=== PATIENT | female | born 1945 | race African-American/Black ===

== ENCOUNTER 2017-02-27 15:45 | Emergency (ER) | payer OTHER, MEDICARE ==
--- NOTE | 2017-02-27 15:55 | DR.AMS ---
HPI - Time Seen Time seen: 15:34 - HPI Comment HPI Comment: Patient referred for evaluation of fever s/p temperature of 101 by home health nurse. - Complaint Cheif Complaint Doctors Comments: Daughter reports that she was at [facility] receiving antibiotics for a shoulder abscess for ten days. She was discharge home s/p rehab with instructions for home health nurse follow up. Today when the nurse took her vital signs her temp for 101 and she was advised to come to the hospital. PMH - PMH Past Medical History: COPD, Diabetes, Hypertension Past Surgical History: Yes Surgical History: Angioplasty/Stents, Ortho Surgery - Social History Do you use any recreational Drugs:: No PE - Vitals Vital Signs: Temp Pulse Pulse Resp BP BP BP 02/27/17 17:24 102.4 F H 91 H 16 02/27/17 15:53 102.7 F H 103 H 18 111/57 01/07/16 12:00 117/50 117/50 01/06/16 16:00 101/75 Pulse Ox 02/27/17 17:24 100 02/27/17 15:53 98 01/07/16 12:00 01/06/16 16:00 Course - Consultation Called: 17:35 (Dr Olivo stated that since we have around the clock nursing care he states that he can be called if any problems arise.) ROR - Labs Reviewed Result Diagrams: 02/27/17 16:30 02/27/17 16:30 Laboratory: WBC 9.1 X10^3/uL (3.6-10.0) 02/27/17 16:30 RBC 3.33 X10^6/uL (3.5-5.4) L 02/27/17 16:30 Hgb 8.8 g/dL (12.0-16.0) L 02/27/17 16:30 Hct 27.0 % (36.0-47.0) L 02/27/17 16:30 MCV 81.1 fL (80.0-100.0) 02/27/17 16:30 MCH 26.3 pg (27.0-34.0) L 02/27/17 16:30 MCHC 32.4 g/dL (33.0-35.0) L 02/27/17 16:30 RDW 18.2 % (11.6-16.5) H 02/27/17 16:30 Plt Count 301 X10^3/uL (150.0-450.0) 02/27/17 16:30 MPV 8.8 fL (7.4-11.0) 02/27/17 16:30 Neut % 69.6 % (42.0-75.0) 02/27/17 16:30 Lymph % 15.4 % (21.0-51.0) L 02/27/17 16:30 [place] % 13.2 % (0.0-13.0) H 02/27/17 16:30 Eos % 1.4 % (0.9-2.9) 02/27/17 16:30 Baso % 0.4 % (0.2-1.0) 02/27/17 16:30 Neut # 6.3 x10^3/uL (2.2-4.8) H 02/27/17 16:30 Lymph # 1.4 X10^3/uL (1.3-2.9) 02/27/17 16:30 [place] # 1.2 x10^3/uL (0.3-0.8) H 02/27/17 16:30 Eos # 0.1 x10^3/uL (0.0-0.2) 02/27/17 16:30 Baso # 0.0 X10^3/uL (0.0-0.1) 02/27/17 16:30 Absolute Nucleated RBC 0.0 /100WBC 02/27/17 16:30 Sodium 135 mmol/L (136-145) L 02/27/17 16:30 Corrected Sodium 136 mmol/L (136-145) 02/27/17 16:30 Potassium 4.6 mmol/L (3.5-5.1) 02/27/17 16:30 Chloride 103 mmol/L (98-107) 02/27/17 16:30 Carbon Dioxide 24.5 mmol/L (21-32) 02/27/17 16:30 BUN 27 mg/dL (7-18) H 02/27/17 16:30 Creatinine 3.25 mg/dL (0.55-1.02) H 02/27/17 16:30 Est GFR (MDRD) Af Amer 18 (>60) L 02/27/17 16:30 Est GFR (MDRD) Non-Af 15 (>60) L 02/27/17 16:30 Glucose 126 mg/dL (65-99) H 02/27/17 16:30 Calcium 8.8 mg/dL (8.5-10.1) 02/27/17 16:30 C-Reactive Protein 206.60 mg/L (0-3.0) H 02/27/17 16:30 Specimen Type Catherized urine 02/27/17 16:44 Urine Color Yellow (YELLOW) 02/27/17 16:44 Urine Appearance Clear (CLEAR) 02/27/17 16:44 Urine pH 6.0 (5.0 - 8.0) 02/27/17 16:44 Ur Specific [place] 1.015 (1.000-1.030) 02/27/17 16:44 Urine Protein 1+ (NEGATIVE) 02/27/17 16:44 Urine Glucose (UA) Negative (NEGATIVE) 02/27/17 16:44 Urine Ketones Negative (NEGATIVE) 02/27/17 16:44 Urine Occult Blood Negative (NEGATIVE) 02/27/17 16:44 Urine Nitrite Negative (NEGATIVE) 02/27/17 16:44 Urine Bilirubin Negative (NEGATIVE) 02/27/17 16:44 Urine Urobilinogen Normal (NORMAL) 02/27/17 16:44 Ur Leukocyte Esterase Negative (NEGATIVE) 02/27/17 16:44 Urine RBC Rare /HPF (NEGATIVE) 02/27/17 16:44 Urine WBC Rare /HPF (NEGATIVE) 02/27/17 16:44 Ur Squamous Epith Cells Few /HPF (NEGATIVE) 02/27/17 16:44 Urine Bacteria Negative /HPF (NEGATIVE) 02/27/17 16:44 Ur Culture Indicated? No/not indicated 02/27/17 16:44 Streptococcus Screen Negative (NEGATIVE) 02/27/17 16:35 - Diagnosis Discharge Problem: Hematoma and contusion Forehead laceration Qualifiers: Encounter type: initial encounter Qualified Code(s): S01.81XA - Laceration without foreign body of other part of head, initial encounter - Discharge Plan Condition: Stable - Follow ups/Referrals Follow ups/Referrals: NFD,None [Primary Care Provider] - 3 days - Instructions
[2017-02-27 16:11] VITALS: BMI 45.1
[2017-02-27] MEDS ORDERED: TYLENOL 500 MG TAB EXTRA STRENGTH PO ONE (16:32)
[2017-02-27 16:41] LABS: BASOPHILS % (AUTO) 0.4 % (0.2-1.0); EOSINOPHILS # (AUTO) 0.1 x10^3/uL (0.0-0.2); EOSINOPHILS % (AUTO) 1.4 % (0.9-2.9); HEMOGLOBIN 8.8 g/dL (12.0-16.0); LYMPHOCYTES # (AUTO) 1.4 X10^3/uL (1.3-2.9); LYMPHOCYTES % (AUTO) 15.4 % (21.0-51.0); MEAN CORPUSCULAR HEMOGLOBIN 26.3 pg (27.0-34.0); MEAN CORPUSCULAR HGB CONC 32.4 g/dL (33.0-35.0); MEAN CORPUSCULAR VOLUME 81.1 fL (80.0-100.0); MEAN PLATELET VOLUME 8.8 fL (7.4-11.0); MONOCYTES # (AUTO) 1.2 x10^3/uL (0.3-0.8); MONOCYTES % (AUTO) 13.2 % (0.0-13.0); NEUTROPHILS # (AUTO) 6.3 x10^3/uL (2.2-4.8); NEUTROPHILS % (AUTO) 69.6 % (42.0-75.0); PLATELET COUNT 301 X10^3/uL (150.0-450.0); RED BLOOD COUNT 3.33 X10^6/uL (3.5-5.4); RED CELL DISTRIBUTION WIDTH 18.2 % (11.6-16.5); WHITE BLOOD COUNT 9.1 X10^3/uL (3.6-10.0)
[2017-02-27 16:50] LABS: CALCIUM 8.8 mg/dL (8.5-10.1); CARBON DIOXIDE 24.5 mmol/L (21-32); CREATININE 3.25 mg/dL (0.55-1.02)
[2017-02-27 16:57] LABS: BILIRUBIN,URINE NEGATIVE (NEGATIVE); BLOOD/HEMOGLOBIN,URINE NEGATIVE (NEGATIVE); GLUCOSE, URINE NEGATIVE (NEGATIVE); KETONES,URINE NEGATIVE (NEGATIVE); LEUKOCYTE ESTERASE ,URINE NEGATIVE (NEGATIVE); NITRITES,URINE NEGATIVE (NEGATIVE); PROTEIN,URINE 1+ (NEGATIVE); UROBILINOGEN,URINE NORMAL (NORMAL)
[2017-02-27 17:05] LABS: APPEARANCE,URINE CLEAR (CLEAR); BACTERIA,URINE NEGATIVE /HPF (NEGATIVE); COLOR,URINE YELLOW (YELLOW); RBC,URINE RARE /HPF (NEGATIVE); SQUAMOUS EPITHELIAL CELL,UR FEW /HPF (NEGATIVE)
[2017-02-27] MEDS ORDERED: NS 1000 ML 1,000 ML IV ONE (17:06)
[2017-02-27] MEDS ORDERED: NS 1000 ML 1,000 ML ONE (17:06)
[2017-02-27 18:15] VITALS: BP 161/69
--- NOTE | 2017-02-27 18:38 | RAD ---
HISTORY: 71-year-old female with fever and altered mental status. Study: Frontal view of the chest. Comparison: Chest radiograph January 04, 2016 Findings: Interval removal of right IJ approach central venous catheter. The trachea is midline. The cardiac silhouette is stably enlarged. The lungs are clear without foca l consolidation, effusion or pneumothorax. Soft tissues are unremarkable. Osseous structures are unr emarkable. IMPRESSION: 1. No acute cardiopulmonary disease. Reported By:
== END 2017-02-27 18:50 | disposition home or self-care (01) ==
LOC: ER 15:58
DX: S00.93XA Contusion of unspecified part of head, initial encounter (principal); S01.81XA Laceration without foreign body of other part of head, initial encounter; Y33.XXXA Other specified events, undetermined intent, initial encounter; Y92.9 Unspecified place or not applicable
CPT/HCPCS: 36415; 71010; 80048; 81001; 85025; 86140; 87040; 87070; 87880; 96365; 96367; 99282; 99283

== ENCOUNTER 2017-03-31 14:59 | Emergency (ER) | payer OTHER, MEDICARE ==
[2017-03-31 15:34] VITALS: BP 147/70; BMI 47.2
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
--- NOTE | 2017-03-31 16:40 | RAD ---
HISTORY: Ankle pain after falling off stretcher Study: Three views left ankle Comparison: None Findings: Normal alignment. No acute fracture or dislocation. The soft tissues are unremarkable. There are deg enerative changes at the ankle joint. There is prominent calcaneal enthesopathy. Vascular calcificati ons are seen. IMPRESSION: 1. No acute osseous abnormality. Reported By:
--- NOTE | 2017-03-31 16:41 | RAD ---
Left shoulder, three views Indication: Fall off stretcher, currently with no complaints of shoulder pain Comparison: None Findings: Evaluation is severely limited due to technique. No definite fracture or malalignment is id entified. Degenerative changes of the AC and glenohumeral joint are noted. There is also suspected na rrowing of the acromiohumeral interval, suggestive for rotator cuff insufficiency. There is no gross soft tissue injury. Impression: Severely limited exam without definite acute osseous abnormality. If there is high clinical concern f or fracture, repeat shoulder radiograph is recommended. Reported By:
== END 2017-03-31 17:18 | disposition home or self-care (01) ==
LOC: ER 15:13
DX: S90.02XA Contusion of left ankle, initial encounter (principal); T81.89XA Other complications of procedures, not elsewhere classified, initial encounter
CPT/HCPCS: 73030; 73610; 99282; 99283

== ENCOUNTER 2017-10-23 04:04 | Emergency (ER) | payer OTHER, MEDICARE ==
[2017-10-23] MEDS ORDERED: NITROSTAT SL PRN (04:15)
[2017-10-23] MEDS ORDERED: PLAVIX PO ONE (04:15)
[2017-10-23 04:18] VITALS: BMI 42.0
[2017-10-23] MEDS ORDERED: ASPIRIN EC 81 MG PO ONE (04:22)
--- NOTE | 2017-10-23 04:22 | DR.GENAD ---
HPI - HPI Comment HPI Comment: Chest pain onset at hs on 10/21/17. It recurred again last night. She describes this as a felling of being gassy. There was no dyspmea, nausea or palpitations. She had no diaphoresis. Before the EMS unit departed her house, she had rated the intensity of the chest pain as as 10 but at the time she's being seen here it is now a 0. She is chest pain free now. - Nurses notes reviewed Nurses Notes Review: Yes - Source History Provided: Patient PMH - PMH Past Medical History: COPD, Diabetes, Hypertension Past Surgical History: Yes Surgical History: Angioplasty/Stents, Ortho Surgery - Social History Do you use any recreational Drugs:: No ROS - Review of Systems Constitutional: No Symptoms Reported Eyes: No Symptoms Reported ENTM: No Symptoms Reported Respiratoy: No Symptoms Reported Cardiovascular: Chest Pain Gastrointestinal/Abdominal: No Symptoms Reported Genitourinary: No Symptoms Reported Neurological: No Symptoms Reported Musculoskeletal: No Symptoms Reported Integumentary: No Symptoms Reported Hematologic/Lymphatic: No Symptoms Reported Endocrine: No Symptoms Reported Psychiatric: No Symptoms Reported All Other Systems: Reviewed and Negative PE - Vital Signs Vitals: Pulse Rate 103 Respiratory Rate 18 Blood Pressure [Left Arm] 117/50 Blood Pressure [Right Arm] 161/69 Blood Pressure 182/115 O2 Sat by Pulse Oximetry 99 - General Limitations: No Limitations General Appearance: Alert, In No Apparent Distress - Head Head Exam: Normal Inspection - Eyes Eye exam: Normal Appearance - ENT ENT Exam: Normal Exam Nose Exam: Normal Nose Exam Mouth Exam: Normal Inspection Throat Exam: Normal Inspection - Neck Neck Exam: Normal Inspection - Chest Chest Inspection: Normal Inspection, Symmetric Chest Wall Rise - Respiratory Respiratory Exam: Normal Lung Sounds Bilat - Cardiovascular Cardiovascular Exam: Regular Rate, Normal Rhythm, Normal Heart Sounds, +S1, +S2 - Abdominal Exam Abdominal Exam: Normal Inspection, Normal Bowel Sounds, Soft - Extremities Extremities Exam: Normal Inspection - Back Back Exam: Normal Inspection - Neurologic Neurological Exam: Alert, Oriented X3 - Psychiatric Psychiatric Exam: Normal Affect, Normal Mood ROR - Labs Reviewed Result Diagrams: 10/23/17 04:15 10/23/17 04:15 Laboratory: WBC 6.7 X10^3/uL (3.6-10.0) 10/23/17 04:15 RBC 3.10 X10^6/uL (3.5-5.4) L 10/23/17 04:15 Hgb 8.6 g/dL (12.0-16.0) L 10/23/17 04:15 Hct 26.2 % (36.0-47.0) L 10/23/17 04:15 MCV 84.6 fL (80.0-100.0) 10/23/17 04:15 MCH 27.8 pg (27.0-34.0) 10/23/17 04:15 MCHC 32.9 g/dL (33.0-35.0) L 10/23/17 04:15 RDW 16.4 % (11.6-16.5) 10/23/17 04:15 Plt Count 266 X10^3/uL (150.0-450.0) 10/23/17 04:15 MPV 10.2 fL (7.4-11.0) 10/23/17 04:15 Neut % (Auto) 56.0 % (42.0-75.0) 10/23/17 04:15 Lymph % (Auto) 23.3 % (21.0-51.0) 10/23/17 04:15 [place] % (Auto) 12.7 % (0.0-13.0) 10/23/17 04:15 Eos % (Auto) 7.4 % (0.9-2.9) H 10/23/17 04:15 Baso % (Auto) 0.6 % (0.2-1.0) 10/23/17 04:15 Neut # (Auto) 3.7 x10^3/uL (2.2-4.8) 10/23/17 04:15 Lymph # (Auto) 1.6 X10^3/uL (1.3-2.9) 10/23/17 04:15 [place] # (Auto) 0.8 x10^3/uL (0.3-0.8) 10/23/17 04:15 Eos # (Auto) 0.5 x10^3/uL (0.0-0.2) H 10/23/17 04:15 Baso # (Auto) 0.0 X10^3/uL (0.0-0.1) 10/23/17 04:15 Absolute Nucleated RBC 0.1 /100WBC 10/23/17 04:15 INR Target Range - 10/23/17 05:35 INR 0.96 (0.8-1.3) 10/23/17 05:35 APTT 23.9 SECONDS (22.9-36.5) 10/23/17 05:35 PTT Comment - 10/23/17 05:35 Sodium 143 mmol/L (136-145) 10/23/17 04:15 Corrected Sodium 146 mmol/L (136-145) H 10/23/17 04:15 Potassium 3.7 mmol/L (3.5-5.1) 10/23/17 04:15 Chloride 106 mmol/L (98-107) 10/23/17 04:15 Carbon Dioxide 29.1 mmol/L (21-32) 10/23/17 04:15 BUN 11 mg/dL (7-18) 10/23/17 04:15 Creatinine 1.34 mg/dL (0.55-1.02) H 10/23/17 04:15 Est GFR (MDRD) Af Amer 50 (>60) L 10/23/17 04:15 Est GFR (MDRD) Non-Af 42 (>60) L 10/23/17 04:15 Glucose 219 mg/dL (65-99) H 10/23/17 04:15 Calcium 7.8 mg/dL (8.5-10.1) L 10/23/17 04:15 Corrected Calcium 9.0 mg/dL (8.5-10.1) 10/23/17 04:15 Magnesium 1.6 mg/dL (1.7-2.9) L 10/23/17 04:15 Total Bilirubin 0.30 mg/dL (0.2-1.0) 10/23/17 04:15 AST 24 Units/L (15-37) 10/23/17 04:15 ALT 15 Units/L (12-78) 10/23/17 04:15 Alkaline Phosphatase 89 Units/L (46-116) 10/23/17 04:15 Creatine Kinase 59 Units/L (26-192) 10/23/17 04:15 CK-MB (CK-2) 1.1 ng/mL (0-4.0) 10/23/17 04:15 CK/CKMB % Calc 1.9 % (<4) 10/23/17 04:15 Troponin I 0.11 ng/mL (0-1.5) 10/23/17 04:15 Total Protein 6.5 g/dL (6.4-8.2) 10/23/17 04:15 Albumin 2.5 g/dL (3.4-5.0) L 10/23/17 04:15 Globulin 4.0 g/dL (2.5-4.5) 10/23/17 04:15 Albumin/Globulin Ratio 0.6 Ratio (1.1-2.1) L 10/23/17 04:15 Triglycerides 157 mg/dL (0-150) H 10/23/17 04:15 Cholesterol 168 mg/dL (0-200) 10/23/17 04:15 LDL Cholesterol, Calc 94 mg/dL (0-100) 10/23/17 04:15 HDL Cholesterol 43 mg/dL (40-60) 10/23/17 04:15 Cholesterol/HDL Ratio 3.9 (0.0-5.0) 10/23/17 04:15 - XRAY XRAY Interpreted by: Radiologist (no acute cardiopulmonary disease.) - EKG Rate: 95 [place]: Normal Rhythm: NSR Block: None Hypertrophy: None - Diagnosis Discharge Problem: Chest pain - Discharge Plan Disposition: 01 HOME, SELF-CARE Condition: Stable - Follow ups/Referrals Follow ups/Referrals: NFD,None [Primary Care Provider] - 3 days - Instructions Instructions: Nonspecific Chest Pain
[2017-10-23] MEDS ORDERED: ASPIRIN 81 MG CHEWTAB ONE (04:30)
[2017-10-23 04:44] LABS: BASOPHILS % (AUTO) 0.6 % (0.2-1.0); EOSINOPHILS # (AUTO) 0.5 x10^3/uL (0.0-0.2); EOSINOPHILS % (AUTO) 7.4 % (0.9-2.9); HEMATOCRIT 26.2 % (36.0-47.0); HEMOGLOBIN 8.6 g/dL (12.0-16.0); LYMPHOCYTES # (AUTO) 1.6 X10^3/uL (1.3-2.9); LYMPHOCYTES % (AUTO) 23.3 % (21.0-51.0); MEAN CORPUSCULAR HEMOGLOBIN 27.8 pg (27.0-34.0); MEAN CORPUSCULAR HGB CONC 32.9 g/dL (33.0-35.0); MEAN CORPUSCULAR VOLUME 84.6 fL (80.0-100.0); MEAN PLATELET VOLUME 10.2 fL (7.4-11.0); MONOCYTES # (AUTO) 0.8 x10^3/uL (0.3-0.8); MONOCYTES % (AUTO) 12.7 % (0.0-13.0); NEUTROPHILS # (AUTO) 3.7 x10^3/uL (2.2-4.8); PLATELET COUNT 266 X10^3/uL (150.0-450.0); RED CELL DISTRIBUTION WIDTH 16.4 % (11.6-16.5); WHITE BLOOD COUNT 6.7 X10^3/uL (3.6-10.0)
[2017-10-23] MEDS ORDERED: NITROSTAT SL ONE (04:46)
[2017-10-23 04:49] LABS: CALCIUM 7.8 mg/dL (8.5-10.1); CARBON DIOXIDE 29.1 mmol/L (21-32); CREATININE 1.34 mg/dL (0.55-1.02); TROPONIN I 0.11 ng/mL (0-1.5)
[2017-10-23 04:52] LABS: ALBUMIN 2.5 g/dL (3.4-5.0); CHOL/HDL RATIO 3.9 (0.0-5.0); CKMB % 1.9 % (<4); CREATINE KINASE MB 1.1 ng/mL (0-4.0); MAGNESIUM 1.6 mg/dL (1.7-2.9); TOTAL PROTEIN 6.5 g/dL (6.4-8.2)
--- NOTE | 2017-10-23 05:42 | RAD ---
AP Chest Indication: Chest pain Comparison: 02/27/2017 Findings: The trachea is midline. The cardiac silhouette is unremarkable. The lungs are clear without focal i nfiltrate or effusion. The bony thorax is unremarkable. IMPRESSION: 1. No acute cardiopulmonary abnormality. Reported By:
[2017-10-23 06:40] VITALS: BP 157/65
== END 2017-10-23 07:24 | disposition home or self-care (01) ==
LOC: ER 04:04
DX: R07.89 Other chest pain (principal); R94.31 Abnormal electrocardiogram [ECG] [EKG]; R73.9 Hyperglycemia, unspecified
CPT/HCPCS: 36415; 71045; 80053; 80061; 82550; 82553; 83735; 84484; 85025; 85610; 85730; 93005; 93010; 99283; A4216

== ENCOUNTER 2018-03-28 14:46 | Inpatient (IN) ==
--- NOTE | 2018-03-28 15:29 | DR.WEAKNES ---
HPI Time Seen Time Seen by Provider: 03/28/18 15:17 Complaints Chief Complaint Doctors Comments: Patient presents with complaint of pain of the right shoulder. She is being treated for an abscess of the right scapula area for several weeks. Wound c/s collected 03/24/18 grew E Coli sensitive to all ex cept ampicillin,ciprofloxacin,levofloxacin,tetracycline and trimethoprinm/sulfamethoxazole. Home health nurse visitation for wound care. Chief Complaint:: PT C/O GENERALIZED PAIN. PT HAS A HISTORY OF A CVA AND WAS CALLED OUT WEAKNESS. EMS STATES PT IS C/O RT SIDED PAIN. PT HAD A URINE CULTURE THAT WAS DONE ON THE THAT GREW OUT E COLI. Reviewed Nurses Notes Reviewed: Yes Source History Provided: Patient, Family Member and EMS Mode of Arrival Mode of Arrival: EMS Timing Onset of Chief Complaint: 03/28/18 Since onset, symptoms are:: Unchanged Symptom Onset: Known (seven days) Context Onset: Spontaneous Stroke Symptoms: None Location Weakness Location: Generalized PMH PMH Past Medical History: Yes Past Medical History: COPD, Diabetes and Hypertension Past Surgical History: Yes Surgical History: Angioplasty/Stents and Ortho Surgery Family History History of Family Medical Conditions: No Social History Does any household member use tobacco: No Alcohol Use: None Do you use any recreational Drugs:: No Lives With: Family Lives Where: Home infectious screening In the last 2 months have you had wt loss of >10#?: NO Have you had fever, night sweats or hemotysis?: No Have you traveled outside the country in the last 6 months?: No Isolation: Standard PE Vital Signs Vitals: Temperature 97.6 F Pulse Rate [Apical] 81 Pulse Rate 78 Respiratory Rate 18 Blood Pressure [Left Arm] 135/61 Blood Pressure [Right Arm] 159/80 Blood Pressure 108/69 O2 Sat by Pulse Oximetry 100 General Limitations: Physical Limitation General Appearance: Alert, In No Apparent Distress and Obese Head Head Exam: Normal Inspection and Atraumatic Head Exam Physical: Other (shoulder pain (right)) Eyes Eye exam: Normal Appearance, PERRL and EOMI; negative Conjunctival Injection, Miosis and Mydrasis Eyelids: Normal Inspection: Bilateral Sclera/Conjunctival: Normal Inspection: Bilateral Anterior Chamber: Normal Inspection: Bilateral ENT ENT Exam: Normal Exam, Normal Oropharynx, Normal External Ear Exam and TM's Normal Bilaterally; negative Mucous Membranes Moist Mouth Exam: negative Normal Inspection and Drooling Throat Exam: Normal Inspection and Tonsillar Erythema Neck Neck Exam: Normal Inspection and Full ROM Chest Chest Inspection: Normal Inspection and Symmetric Chest Wall Rise Respiratory Respiratory Exam: Normal Lung Sounds Bilat; negative Accessory Muscle Use Respiratory Exam: Bilateral: Clear to Auscultation Cardiovascular Cardiovascular Exam: Regular Rate Abdominal Exam Abdominal Exam: Normal Inspection and Soft; negative Tenderness, Rebound, Dimnished Bowel Sounds, Trauma and Ascites Extremities Extremities Exam: Normal Inspection and Normal Capillary Refill; negative Tenderness and Joint Swelling Back Back Exam: Normal Inspection and Full ROM; negative Tenderness, (R) CVA Tenderness, (L) CVA Tenderness and Muscle Spasm Neurologic Speech: Fluid Speech Cranial Nerve Exam: EOM Function (II, III, IV, ): Normal Sensory Exam Lower Extremity: Light Touch: Normal Skin Skin Exam: Warm, Dry, Intact and Normal Color; negative Rash (right shoulder with lesion macular erythematous area treated with wet to dry dressings) COURSE Treatment Treatment: NS 250ml/Hr. Reevaluation 1st: Unchanged Consultation Called: 19:45 Consultation Comments: Dr. Chawla agreed to admit for further evaluation and treatment ROR Labs Reviewed Laboratory Results Reviewed?: Yes Result Diagrams: 03/28/18 15:41 03/28/18 16:12 Laboratory: WBC 28.3 X10^3/uL (3.6-10.0) H 03/28/18 15:41 RBC 3.06 X10^6/uL (3.5-5.4) L 03/28/18 15:41 Hgb 7.5 g/dL (12.0-16.0) L 03/28/18 15:41 Hct 24.0 % (36.0-47.0) L 03/28/18 15:41 MCV 78.2 fL (80.0-100.0) L 03/28/18 15:41 MCH 24.6 pg (27.0-34.0) L 03/28/18 15:41 MCHC 31.5 g/dL (33.0-35.0) L 03/28/18 15:41 RDW 19.3 % (11.6-16.5) H 03/28/18 15:41 Plt Count 387 X10^3/uL (150.0-450.0) 03/28/18 15:41 Plt Count Comment Adequate (ADEQUATE) 03/28/18 15:41 MPV 9.7 fL (7.4-11.0) 03/28/18 15:41 Neut % (Auto) 87.7 % (42.0-75.0) H 03/28/18 15:41 Lymph % (Auto) 4.4 % (21.0-51.0) L 03/28/18 15:41 [place] % (Auto) 7.4 % (0.0-13.0) 03/28/18 15:41 Eos % (Auto) 0.3 % (0.9-2.9) L 03/28/18 15:41 Baso % (Auto) 0.2 % (0.2-1.0) 03/28/18 15:41 Neut # (Auto) 24.9 x10^3/uL (2.2-4.8) H 03/28/18 15:41 Lymph # (Auto) 1.3 X10^3/uL (1.3-2.9) 03/28/18 15:41 [place] # (Auto) 2.1 x10^3/uL (0.3-0.8) H 03/28/18 15:41 Eos # (Auto) 0.1 x10^3/uL (0.0-0.2) 03/28/18 15:41 Baso # (Auto) 0.1 X10^3/uL (0.0-0.1) 03/28/18 15:41 Absolute Nucleated RBC 0.1 /100WBC 03/28/18 15:41 Plt Morphology Comment Normal (NORMAL) 03/28/18 15:41 RBC Morphology Abnormal (NORMAL) A 03/28/18 15:41 Hypochromasia Slight A 03/28/18 15:41 Sodium 136 mmol/L (136-145) 03/28/18 16:12 Corrected Sodium 138 mmol/L (136-145) 03/28/18 16:12 Potassium 5.8 mmol/L (3.5-5.1) H 03/28/18 16:12 Chloride 102 mmol/L (98-107) 03/28/18 16:12 Carbon Dioxide 19.8 mmol/L (21-32) L 03/28/18 16:12 BUN 86 mg/dL (7-18) H 03/28/18 16:12 Creatinine 3.93 mg/dL (0.55-1.02) H 03/28/18 16:12 Est GFR (MDRD) Af Amer 15 (>60) L 03/28/18 16:12 Est GFR (MDRD) Non-Af 12 (>60) L 03/28/18 16:12 Glucose 198 mg/dL (65-99) H 03/28/18 16:12 Lactic Acid 1.8 mmol/L (0.4-2.0) 03/28/18 16:12 Calcium 8.7 mg/dL (8.5-10.1) 03/28/18 16:12 Corrected Calcium 10.3 mg/dL (8.5-10.1) H 03/28/18 16:12 Total Bilirubin 0.70 mg/dL (0.2-1.0) 03/28/18 16:12 AST 56 Units/L (15-37) H 03/28/18 16:12 ALT 31 Units/L (12-78) 03/28/18 16:12 Alkaline Phosphatase 262 Units/L (46-116) H 03/28/18 16:12 C-Reactive Protein 319.70 mg/L (0-3.0) H 03/28/18 15:41 Total Protein 8.4 g/dL (6.4-8.2) H 03/28/18 16:12 Albumin 2.0 g/dL (3.4-5.0) L 03/28/18 16:12 Globulin 6.4 g/dL (2.5-4.5) H 03/28/18 16:12 Albumin/Globulin Ratio 0.3 Ratio (1.1-2.1) L 03/28/18 16:12 Other Results Comments: Right Shoulder: There is narrowing of the acromiohumeral interval suggesting rotator cuff insufficiency. There appears to be enthesophyte extending from the greater tuberosity. This does not have the typical density of hydroxyapatite deposition. There is mild degenerative changes of the glenohumeral joint with severe degenerative changes of the AC joint. No fracture. XRAY XRAY Findings: No radiographic evidence of acute cardiopuulmonary disease/- significant gisela Procedures Procedure Comments Procedures: Dr. Young; surgeon, put in a central line right inguinal area. ADDITIONAL NOTES Additional Notes Additional Notes: CxR: No acute cardiopulmonary disease. There is a ring-like calcification involving the left side of the neck measuring approximately 2cm in maximum dimension. This is unchanged from the prior examination. This may represent a partially calcified thyroid nodule. It has been present since an exam dating back to 01/04/16.EKG: SR 69/min LAE old inferior lateral infarct. CxR: No evidence of cardiopulmonary disease
[2018-03-28 15:50] LABS: BASOPHILS # (AUTO) 0.1 X10^3/uL (0.0-0.1); BASOPHILS % (AUTO) 0.2 % (0.2-1.0); EOSINOPHILS # (AUTO) 0.1 x10^3/uL (0.0-0.2); EOSINOPHILS % (AUTO) 0.3 % (0.9-2.9); HEMOGLOBIN 7.5 g/dL (12.0-16.0); LYMPHOCYTES # (AUTO) 1.3 X10^3/uL (1.3-2.9); LYMPHOCYTES % (AUTO) 4.4 % (21.0-51.0); MEAN CORPUSCULAR HEMOGLOBIN 24.6 pg (27.0-34.0); MEAN CORPUSCULAR HGB CONC 31.5 g/dL (33.0-35.0); MEAN CORPUSCULAR VOLUME 78.2 fL (80.0-100.0); MEAN PLATELET VOLUME 9.7 fL (7.4-11.0); MONOCYTES # (AUTO) 2.1 x10^3/uL (0.3-0.8); MONOCYTES % (AUTO) 7.4 % (0.0-13.0); NEUTROPHILS # (AUTO) 24.9 x10^3/uL (2.2-4.8); NEUTROPHILS % (AUTO) 87.7 % (42.0-75.0); PLATELET COUNT 387 X10^3/uL (150.0-450.0); RED BLOOD COUNT 3.06 X10^6/uL (3.5-5.4); RED CELL DISTRIBUTION WIDTH 19.3 % (11.6-16.5); WHITE BLOOD COUNT 28.3 X10^3/uL (3.6-10.0)
[2018-03-28 15:59] LABS: HYPOCHROMASIA SLIGHT; PLATELET MORPHOLOGY COMMENT NORMAL (NORMAL)
--- NOTE | 2018-03-28 16:04 | RAD ---
Three views of the right shoulder. Indication: Right shoulder pain. Findings/conclusion: There is narrowing of the acromiohumeral interval suggesting rotator cuff insuff iciency. There appears to be enthesophyte extending from the greater tuberosity. This does not have t he typical density of hydroxyapatite deposition. There is mild degenerative changes of the glenohumer al joint with severe degenerative changes of the AC joint. No fracture. Reported By:
[2018-03-28 16:43] LABS: CALCIUM 8.7 mg/dL (8.5-10.1); CARBON DIOXIDE 19.8 mmol/L (21-32); COR CA(FOR HYPOALB) 10.3 mg/dL (8.5-10.1); CREATININE 3.93 mg/dL (0.55-1.02); TOTAL PROTEIN 8.4 g/dL (6.4-8.2)
--- NOTE | 2018-03-28 16:51 | RAD ---
HISTORY: Generalized pain. CVA. Right-sided pain. Study: AP portable chest Comparison: 10/23/2017 Findings: The lungs are clear. The heart size is normal. No acute bony abnormalities are identified. There is a ring-like calcification involving the left side of the neck measuring approximately 2 cm in maximum dimension. This is unchanged from the prior examination. This may represent a partially calcified thy roid nodule. It has been present since an exam dating back to 01/04/2016. IMPRESSION: 1. No radiographic evidence of acute cardiopulmonary disease or significant change is noted when co mpared to the prior examination. Reported By:
[2018-03-28 16:52] LABS: LACTIC ACID 1.8 mmol/L (0.4-2.0)
[2018-03-28] MEDS ORDERED: PROVENTIL NEB TX 0.083% 2.5MG/ 3ML ONE (17:22)
[2018-03-28] MEDS ORDERED: PROVENTIL NEB TX 0.083% 2.5MG/ 3ML NEB ONE (17:23)
[2018-03-28] MEDS: PROVENTIL NEB TX 0.083% 2.5MG/ 3ML NEB ONE (17:23)
[2018-03-28] MEDS ORDERED: XYLOCAINE 1 % (PLAIN) ONE (17:49)
[2018-03-28] MEDS ORDERED: D50W ABBOJECT SYR IV ONE (18:48)
[2018-03-28] MEDS ORDERED: CALCIUM GLUCONATE 10% IV ONE ×2 (18:48→19:06)
[2018-03-28] MEDS ORDERED: SODIUM BICARBONATE 8.4% INJ ADULT 50 ML in NS 1/2 500 ML IV 500 ML IV ONE (18:48)
[2018-03-28] MEDS ORDERED: HumuLIN R IV ONE (18:48)
[2018-03-28] MEDS ORDERED: LASIX IVP ONE ×2 (18:52→19:08)
[2018-03-28] MEDS ORDERED: KAYEXALATE SUSP PO ONE (18:54)
[2018-03-28] MEDS ORDERED: NS 1/2 1000 ML IV 0 ML IV ONE (19:01)
[2018-03-28] MEDS ORDERED: SODIUM BICARBONATE 8.4% INJ ADULT ONE (19:01)
[2018-03-28] MEDS ORDERED: D50W ABBOJECT SYR ONE (19:07)
[2018-03-28] MEDS ORDERED: HumuLIN R ONE (19:09)
[2018-03-28] MEDS ORDERED: SODIUM BICARBONATE 8.4% INJ ADULT IVP ONE (19:25)
--- NOTE | 2018-03-28 19:30 | RAD ---
HISTORY: Central line placement, failed attempts Study: Single-view chest Comparison: Earlier same day Findings: The trachea is midline. The cardiac silhouette is stable. There is a stable calcification over the l eft superior mediastinum. No pneumothorax is seen.. The lungs are clear without focal infiltrate or effusion. The bony thorax is unremarkable. IMPRESSION: 1. No acute cardiopulmonary disease. Reported By:
[2018-03-28] MEDS: NS 1000 ML 1,000 ML IV SCH (19:37)
[2018-03-28 22:19] LABS: BILIRUBIN,URINE NEGATIVE (NEGATIVE); BLOOD/HEMOGLOBIN,URINE 3+ (NEGATIVE); GLUCOSE, URINE NEGATIVE (NEGATIVE); KETONES,URINE NEGATIVE (NEGATIVE); LEUKOCYTE ESTERASE ,URINE 3+ (NEGATIVE); NITRITES,URINE NEGATIVE (NEGATIVE); PROTEIN,URINE 3+ (NEGATIVE); UROBILINOGEN,URINE NORMAL (NORMAL)
[2018-03-28 22:43] LABS: APPEARANCE,URINE CLOUDY (CLEAR); BACTERIA,URINE 3+ /HPF (NEGATIVE); COLOR,URINE YELLOW (YELLOW); RBC,URINE 20-30 /HPF (NONE SEEN); SQUAMOUS EPITHELIAL CELL,UR FEW /HPF (NEGATIVE); YEAST,URINE MANY /HPF (NEGATIVE)
[2018-03-28] MEDS: HumuLIN 70/30 (NovoLIN 70/30) SC SCH (23:00)
[2018-03-28] MEDS: NORCO 10/325 TAB PO SCH (23:00)
[2018-03-28] MEDS: APRESOLINE TAB 25 MG PO SCH (23:00)
[2018-03-28] MEDS ORDERED: HYDRALAZINE 50 MG PO SCH (23:02)
[2018-03-29] MEDS: NS 1000 ML 1,000 ML IV SCH ×4 (00:39→17:05)
[2018-03-29 05:26] LABS: ALBUMIN 1.9 g/dL (3.4-5.0); CALCIUM 8.3 mg/dL (8.5-10.1); CARBON DIOXIDE 20.6 mmol/L (21-32); CREATININE 3.79 mg/dL (0.55-1.02); TOTAL PROTEIN 7.8 g/dL (6.4-8.2)
[2018-03-29 05:28] LABS: BASOPHILS % (AUTO) 0.2 % (0.2-1.0); EOSINOPHILS # (AUTO) 0.1 x10^3/uL (0.0-0.2); EOSINOPHILS % (AUTO) 0.4 % (0.9-2.9); HEMATOCRIT 23.5 % (36.0-47.0); HEMOGLOBIN 7.5 g/dL (12.0-16.0); MEAN CORPUSCULAR VOLUME 78.3 fL (80.0-100.0); MONOCYTES # (AUTO) 1.7 x10^3/uL (0.3-0.8); MONOCYTES % (AUTO) 6.1 % (0.0-13.0); NEUTROPHILS # (AUTO) 24.2 x10^3/uL (2.2-4.8); NEUTROPHILS % (AUTO) 86.3 % (42.0-75.0); PLATELET COUNT 394 X10^3/uL (150.0-450.0); RED CELL DISTRIBUTION WIDTH 19.2 % (11.6-16.5)
[2018-03-29 06:12] LABS: BAND NEUTROPHILS % 2 % (0-10); HYPOCHROMASIA SLIGHT; PLATELET MORPHOLOGY COMMENT NORMAL (NORMAL); TARGET CELLS PRESENT
[2018-03-29] MEDS: APRESOLINE TAB 25 MG PO SCH ×3 (06:13→22:13)
[2018-03-29] MEDS: NORCO 10/325 TAB PO SCH ×3 (06:14→22:13)
[2018-03-29] MEDS: HumuLIN R SUBCUT PRN ×3 (06:33→17:36)
[2018-03-29 08:24] VITALS: BMI 46.0
[2018-03-29] MEDS: COZAAR PO SCH (08:46)
[2018-03-29] MEDS: COREG TAB 25 MG PO SCH ×2 (08:46→22:12)
[2018-03-29] MEDS: NEURONTIN CAP 300 MG PO SCH ×2 (08:46→22:12)
[2018-03-29] MEDS: PLAVIX PO SCH (08:50)
[2018-03-29] MEDS ORDERED: GABAPENTIN 300 MG PO SCH (09:00)
[2018-03-29] MEDS ORDERED: PENTOXIFYLLINE 400 MG PO SCH (09:00)
[2018-03-29] MEDS ORDERED: ALPRAZOLAM 2 MG PO SCH (09:00)
[2018-03-29] MEDS: TRENTAL PO SCH ×3 (10:28→22:23)
[2018-03-29] MEDS: XANAX PO SCH ×2 (10:28→22:13)
[2018-03-29] MEDS ORDERED: PHARMACY CONSULT - DOSE _____ XX SCH (11:00)
[2018-03-29] MEDS: INVANZ INJ 1 GM VIAL 1 GM in NS 100 ML IV + SPIKE MINIBAG* 100 ML IV SCH (12:01)
[2018-03-29] MEDS: PROVENTIL NEB TX 0.083% 2.5MG/ 3ML NEB ONE (12:38)
[2018-03-29] MEDS: HumuLIN 70/30 (NovoLIN 70/30) SC SCH ×2 (14:42→14:43)
--- NOTE | 2018-03-29 15:28 | DR.H&P ---
H&P - History & Physical for Day of: H&P Date: 03/28/18 - Chief Complaint Chief Complaint: RIGHT SHOULDER PAIN, WEAKNESS, RIGHT SCAPULA WOUND, UTI - History of Present Illness History of Present Illness: IS A 72 YEAR OLD PATIENT OF DR.RHONDA REA. SHE PRESENTED TO THE ER WITH COMPLAINTS OF RIGHT SHOULER PAIN AND GENERALIZED WEAKNESS. HOME HEALTH NURSES REPORT THAT SHE HAS BEEN BEING TREATED FOR AN ABSCESS TO THE RIGHT SCAPULA AREA FOR SEVERAL WEEKS WELL E.COLI IN THE URINE. ON EXAMINATION, THERE IS ALSO A WOUND TO THE LEFT UPPER ABDOMEN NOTED. PAST MEDICAL HISTORY INCLUDES CVA, COPD, DIABETES, HTN, ANEMIA, AND STEN TS. ON ARRIVAL, VITALS WERE 97.6-76-22-95%-108/69. LABS WERE OBTAINED. ABNORMAL LAB VALUES INCLUDE THE FOLLOWING: WBC 28.3, RBC 3.06, HGB 7.5, HCT 24.0, POTASSIUM 5.8, CARBON DIOXIDE 19.8, BUN 86, CREATININE 3.79, GLUCOOSE 198, AST 56, ALK PHOS 262, CRP 319.70, TOTAL PROTEIN 8.4, ALBUMIN 2.0. URINALYSIS REVEALED WBC TNTC, RBC 20-30, BACTERIA 3+, LEUKOCYTES 3+, OCCULT BLOOD 3+, PROTEIN 3+. BLOOD AND URINE CULTURES ARE PENDING. A SHOULDER XRAY WAS OBTAINED AND REVEALED: There is narrowing of the acromiohumeral interval suggesting rotator cuff insufficiency. There appears to be enthesophyte extending from the greater tuberosity. This does not have the typical density of hydroxyapatite deposition. There is mild degenerative changes of the glenohumeral joint with severe degenerative changes of the AC joint. No fracture. A CHEST XRAY WAS OBTAINED AND REVEALED: No radiographic evidence of acute cardiopulmonary disease or significant change is noted when compared to the prior examination. EKG REVEALED: SINUS RHYTHM WITH HR 77. SHE WAS STARTED ON NORMAL SALINE AT 250ML/HR, LASIX 40MG IV X 1, KAYEXALATE 15GM PO X 1, SODIUM BICARB ONE AMP, D50 1 AMP, AND HUMULIN R 10 UNITS IN THE ER WELL A BREATHING TREATMENT. SHE WAS ADMITTED TO THE HOSPITAL FOR FURTHER EVALUATION AND TREATMENT OF DEHYDRATION, HYPERKALEMIA, AND PRE RENAL AZOTEMIA. WE WILL START IV HYDRATION AND IV ANTIBIOTICS. OTHERWISE, WE WILL FOLLOW UP WITH AM LABS AND CONTINUE TO MONITOR PATIENT. - Past Medical History Past Medical History: Hypertension, Diabetes, COPD - Past Surgical History Surgical History: Angioplasty/Stents, Ortho Surgery - Social History Type of Tobacco Use: None Does any household member use tobacco: No Alcohol Use: None Drug Use: None - Medications Home Medications: Penicillins Allergy (Verified 02/27/17 17:17) CONTINUE taking the following medications alprazolam 2 mg PO BID 03/28/18 [History] clopidogrel 75 mg PO QDAY 03/28/18 [History] hydralazine 50 mg PO TID 03/28/18 [History] hydrocodone-acetaminophen 1 tab PO TID 03/28/18 [History] insulin NPH isoph U-100 human [Humulin N NPH U-100 Insulin] 30 units SUBCUT BID 03/28/18 [History] losartan 100 mg PO DAILY 03/28/18 [History] pentoxifylline 400 mg PO BID 03/28/18 [History] pravastatin 40 mg PO HS 03/28/18 [History] - Review of Systems Constitutional: Weakness Eyes: No Symptoms Reported ENT: No Symptoms Reported Respiratory: Shortness of Breath Cardiovascular: No Symptoms Reported Gastrointestinal: Nausea, Abdominal Pain. denies: Vomiting, Diarrhea, Constipation, Melena, Hematochezia Genitourinary: No Symptoms Reported Musculoskeletal: Shoulder Pain Skin: Wound (RIGHT SCAPULA, LEFT UPPER ABDOMEN) Neurological: Weakness - Physical Exam Vital Signs: Temperature 98.9 F Pulse Rate [Apical] 94 Pulse Rate 78 Respiratory Rate 20 Blood Pressure [Left Arm] 134/87 Blood Pressure [Right Arm] 159/80 Blood Pressure 108/69 O2 Sat by Pulse Oximetry 97 Oriented: Normal Eyes: Normal Ear: Normal Nose: Normal Throat: Normal Respiratory: Diminished Throughout Cardiovascular: Normal. negative: S3, S4, Murmur : Normal Auscultation: Bowel Sounds: Normal Palpation: Normal Tenderness: Suprapubic, Mild. negative: Rebound, Guarding, Rigidity Skin: Red, Tender, Hot, Wound Musculoskeletal: Right, Shoulder Psychiatric: Normal Mood Description: Calm Affect: Normal Speech Pattern: Clear - Assessment/Plan (1) Dehydration Status: Acute Plan: NORMAL SALINE AT 75ML/HR, CONTINUE TO MONITOR (2) Acute prerenal azotemia Status: Acute Plan: NORMAL SALINE AT 75ML/HR, CONTINUE TO MONITOR (3) Abscess Status: Acute Plan: INVANZ 1GM IV DAILY, WOUND CARE, CONTINUE TO MONITOR (4) Acute UTI (urinary tract infection) Status: Acute Plan: INVANZ 1GM IV DAILY (5) Hyperkalemia Status: Acute Plan: NORMAL SALINE AT 75ML/HR, CONTINUE TO MONITOR - Allergies Allergies/Adverse Reactions: Allergies Allergy/AdvReac Type Severity Reaction Status Date / Time Penicillins Allergy Verified 02/27/17 17:17
[2018-03-29] MEDS: TYLENOL 325 MG TAB PO PRN (16:45)
[2018-03-29] MEDS ORDERED: SNACK - Diabetic Appropriate PO SCH (20:00)
[2018-03-29] MEDS ORDERED: PRAVACHOL PO SCH (21:00)
[2018-03-30] MEDS: TYLENOL 325 MG TAB PO PRN (00:54)
[2018-03-30] MEDS ORDERED: OFIRMEV IV 1000 MG VIAL 1,000 MG/100 ML VIAL IV PRN (04:05)
[2018-03-30 05:24] LABS: ALBUMIN 1.6 g/dL (3.4-5.0); CALCIUM 7.4 mg/dL (8.5-10.1); CARBON DIOXIDE 19.3 mmol/L (21-32); COR CA(FOR HYPOALB) 9.3 mg/dL (8.5-10.1); CREATININE 3.38 mg/dL (0.55-1.02); TOTAL PROTEIN 6.3 g/dL (6.4-8.2)
[2018-03-30] MEDS: APRESOLINE TAB 25 MG PO SCH ×3 (05:53→13:11)
[2018-03-30] MEDS: HumuLIN R SUBCUT PRN ×2 (05:54→11:25)
[2018-03-30] MEDS: NORCO 10/325 TAB PO SCH ×2 (05:56→13:11)
[2018-03-30] MEDS: NS 1000 ML 1,000 ML IV SCH ×2 (05:57→09:10)
[2018-03-30 06:24] LABS: BASOPHILS % (AUTO) 0.1 % (0.2-1.0); EOSINOPHILS % (AUTO) 0.1 % (0.9-2.9); HEMATOCRIT 22.4 % (36.0-47.0); HEMOGLOBIN 7.1 g/dL (12.0-16.0); LYMPHOCYTES % (AUTO) 3.5 % (21.0-51.0); MEAN CORPUSCULAR HEMOGLOBIN 24.7 pg (27.0-34.0); MEAN CORPUSCULAR HGB CONC 31.8 g/dL (33.0-35.0); MEAN CORPUSCULAR VOLUME 77.7 fL (80.0-100.0); MEAN PLATELET VOLUME 9.9 fL (7.4-11.0); MONOCYTES # (AUTO) 1.7 x10^3/uL (0.3-0.8); NEUTROPHILS # (AUTO) 24.9 x10^3/uL (2.2-4.8); NEUTROPHILS % (AUTO) 90.3 % (42.0-75.0); PLATELET COUNT 384 X10^3/uL (150.0-450.0); RED BLOOD COUNT 2.88 X10^6/uL (3.5-5.4); RED CELL DISTRIBUTION WIDTH 18.8 % (11.6-16.5); WHITE BLOOD COUNT 27.6 X10^3/uL (3.6-10.0)
[2018-03-30 06:45] LABS: BAND NEUTROPHILS % 2 % (0-10); PLATELET MORPHOLOGY COMMENT NORMAL (NORMAL)
[2018-03-30] MEDS: ADRENALINE CHL INJ IVP PRN ×3 (07:11→07:17)
--- NOTE | 2018-03-30 07:12 | RAD ---
HISTORY: Attempted central line placement, but failed. Study: Single-view chest Comparison: 03/28/2018. Technique: Examination is expiratory. Findings: Trachea is midline. There is accentuation of the transverse cardiac diameter and bronchovascular clinton ings secondary to the expiratory phase. The heart size is likely upper normal. Lungs and pleural spac es are clear. No pneumothorax is seen. Osseous structures are intact. IMPRESSION: No evidence of pneumothorax. No acute cardiopulmonary disease. Reported By:
[2018-03-30] MEDS ORDERED: TYLENOL SUPP 650 MG ONE (07:25)
[2018-03-30] MEDS ORDERED: TYLENOL SUPP 650 MG PR PRN (07:26)
[2018-03-30] MEDS ORDERED: ADRENALINE CHL INJ 3 MG in NS 250 ML IV 247 ML IV PRN (07:38)
[2018-03-30] MEDS ORDERED: LEVOPHED INJ 8 MG in D5W 250 ML IV 242 ML IV PRN (07:43)
[2018-03-30] MEDS ORDERED: NS 1000 ML 1,000 ML IV ONE (08:10)
[2018-03-30 08:30] LABS: CKMB % 0.3 % (<4); CREATINE KINASE 299 Units/L (26-192); CREATINE KINASE MB < 1.0 ng/mL (0-4.0); TROPONIN I < 0.02 ng/mL (0-1.5)
[2018-03-30 08:33] LABS: ABG BASE EXCESS -9.9 mmol/L (-2.0-2.0); ABG HCO3 16.1 mmol/L (22-26)
[2018-03-30 08:34] LABS: ABG ALLEN TEST POS; FRACTIONATED INSPIRED OXYGEN 60
[2018-03-30 08:51] LABS: ABG BASE EXCESS -8.7 mmol/L (-2.0-2.0)
[2018-03-30 08:52] LABS: ABG HCO3 15.5 mmol/L (22-26); FRACTIONATED INSPIRED OXYGEN 60
--- NOTE | 2018-03-30 09:04 | RAD ---
HISTORY: ET tube placement Study: Chest AP portable Comparison: 03/30/2018 7:06 a.m. Findings: There is an endotracheal tube with its tip at the orifice of the right mainstem bronchus. Retraction of 4 cm is recommended for optimal performance. Heart is enlarged. No congestive heart failure is not ed. No infiltrates, pleural effusions, or pneumothoraces are identified. The bony thorax is unremarka ble. IMPRESSION: ET tube tip at the orifice of the right mainstem bronchus. Retraction of 4 cm is recommended Mild cardiomegaly without congestive heart failure Lungs clear Reported By:
[2018-03-30] MEDS: COZAAR PO SCH (09:24)
[2018-03-30] MEDS: TRENTAL PO SCH (09:24)
[2018-03-30] MEDS: NEURONTIN CAP 300 MG PO SCH (09:24)
[2018-03-30] MEDS: COREG TAB 25 MG PO SCH (09:24)
[2018-03-30] MEDS: XANAX PO SCH (09:24)
[2018-03-30] MEDS: PLAVIX PO SCH (09:24)
[2018-03-30] MEDS ORDERED: PHARMACY CONSULT - VANCOMYCIN XX SCH (10:00)
[2018-03-30] MEDS ORDERED: VANCOMYCIN HCL 500 MG VIAL 500 MG, VANCOMYCIN HCL 1 GM VIAL 1 G in D5W 250 ML IV 250 ML IV SCH (10:00)
[2018-03-30] MEDS: INVANZ INJ 1 GM VIAL 1 GM in NS 100 ML IV + SPIKE MINIBAG* 100 ML IV SCH (10:45)
[2018-03-30] MEDS ORDERED: VANCOMYCIN HCL 500 MG VIAL 500 MG, VANCOMYCIN HCL 1 GM VIAL 1 G in NS 250 ML IV 250 ML IV SCH (11:00)
[2018-03-30] MEDS ORDERED: MORPHINE SULFATE PCA 30 MG IVP PRN (11:21)
[2018-03-30] MEDS ORDERED: VERSED 100 MG in NS 100 ML IV 80 ML IV PRN (11:21)
[2018-03-30 13:20] LABS: CKMB % 0.3 % (<4); CREATINE KINASE 336 Units/L (26-192); CREATINE KINASE MB < 1.0 ng/mL (0-4.0); TROPONIN I 0.06 ng/mL (0-1.5)
--- NOTE | 2018-03-30 15:43 | PCM.PROG ---
Progress Note - Progress Note for Day of Date of Exam: 03/29/18 - Subjective Subjective: WAS ADMITTED FOR DEHYDRATION, PRERENAL AZOTEMIA, URINARY TRACT INFECTION, HYPERKALEMIA, AND MULTIPLE ABSCESSES. TODAY, SHE IS LYING IN BED ON MORNING ROUNDS. SHE HAS EYES CLOSED UPON ROUNDS, BUT AWAKENS TO VERBAL STIMULI. SHE CONTINUES WITH COMPLAINTS OF WEAKNESS, RIGHT SHOULDER PAIN, AND SUPRAPUBIC PAIN. ON EXAMINATION, HEART IS REGULAR IN RATE AND RHYTHM. BILATERAL LUNGS ARE NOTED WITH DIMINISHED LUNG SOUNDS THROUGHOUT. ABDOMEN IS ROUND, SOFT, AND NOTED WITH MILD, SUPRAPUBIC TENDERNESS TO PALPATION. WOUND TO THE LEFT UPPER ABDOMEN AND RIGHT SHOULDER BOTH HAVE DRESSINGS AT THIS TIME. DRESSINGS ARE DRY AND INTACT. BILATERAL LOWER EXTREMITIES ARE NOTED WITH TRACE EDEMA. HER VITALS THIS MORNING ARE 99.6-80-20-94%RA-118/57. TEMP WAS NOTED TO BE 100.4 AT 4AM. LABS WERE OBTAINED. ABNORMAL LABS INCLUDE THE FOLLOWIN.0, RBC 3.00, HGB 7.5, HCT 23.5, POTASSIUM 5.2, CARBON DIOXIDE 20.6, BUN 89, CREATININE 3.79, GLUCOSE 270, CALCIUM 8.3, AST 51, ALK PHOS 239, ALBUMIN 1.9. SHE IS CURRENTLY RECEIVING NORMAL SALINE AT 250ML/HR. TODAY, WE WILL DECREASE IV FLUIDS TO 75ML/HR, OBTAIN WOUND CUTLURES, AND REPEAT BLOOD CULTURES. PREVIOUS URINE CULTURE WAS SENSITIVE TO INVANZ. WE WILL START INVANZ 1GM IV DAILY TODAY. OTHERWISE, WE WILL FOLLOW UP WITH AM LABS AND CONTINUE TO MONITOR PATIENT. - Past Medical Family Social History Past Med/Fam/Surg Hx: No changes since H&P Allergies: Allergies Penicillins Allergy (Verified 02/27/17 17:17) - Review of Systems ROS: No change since H&P - Vital Signs and I&O's Vital Signs: Temperature 97.3 F Pulse Rate [Apical] 79 Pulse Rate 78 Respiratory Rate 0 Blood Pressure [Left Arm] 89/44 Blood Pressure [Right Arm] 159/80 Blood Pressure 108/69 O2 Sat by Pulse Oximetry 100 Intake and Output: Intake & Output 03/28/18 03/29/18 03/30/18 03/31/18 11:59 11:59 11:59 11:59 Intake Total 0 / 0 2420 / 2420 850 / 850 Output Total 900 / 900 1325 / 1325 150 / 150 Balance -900 / -900 1095 / 1095 700 / 700 - Physical Exam Oriented: Normal Eyes: Normal Ear: Normal Nose: Normal Throat: Normal Respiratory: Generalized, Diminished Cardiovascular: Edema (BLE TRACE EDEMA ). negative: S3, S4, Murmur : Normal Auscultation: Bowel Sounds: Normal Palpation: Normal Tenderness: Suprapubic, Mild. negative: Rebound, Guarding, Rigidity Skin: Red, Tender, Hot, Wound Musculoskeletal: Right, Shoulder Psychiatric: Normal Mood Description: Calm Affect: Normal Speech Pattern: Artificially Ventilated - Laboratory and Diagnostics Result Diagrams: 03/30/18 06:14 03/30/18 04:24 Labs: 03/30/18 09:25 Sputum - Endotracheal Wash - Final 03/29/18 10:50 Shoulder - Right Gram Stain - Final 03/29/18 10:50 Shoulder - Right Wound Culture - Preliminary 03/29/18 10:50 Abdomen Gram Stain - Final 03/29/18 10:50 Abdomen Wound Culture - Preliminary 03/28/18 21:54 Urine,Catheterized Urine Culture - Preliminary 03/28/18 19:09 Blood Blood Culture - Preliminary 03/28/18 16:12 Blood Blood Culture - Preliminary Laboratory WBC 27.6 X10^3/uL (3.6-10.0) H 03/30/18 06:14 RBC 2.88 X10^6/uL (3.5-5.4) L 03/30/18 06:14 Hgb 7.1 g/dL (12.0-16.0) L 03/30/18 06:14 Hct 22.4 % (36.0-47.0) L 03/30/18 06:14 MCV 77.7 fL (80.0-100.0) L 03/30/18 06:14 MCH 24.7 pg (27.0-34.0) L 03/30/18 06:14 MCHC 31.8 g/dL (33.0-35.0) L 03/30/18 06:14 RDW 18.8 % (11.6-16.5) H 03/30/18 06:14 Plt Count 384 X10^3/uL (150.0-450.0) 03/30/18 06:14 Plt Count Comment Adequate (ADEQUATE) 03/30/18 06:14 MPV 9.9 fL (7.4-11.0) 03/30/18 06:14 Neut % (Auto) 90.3 % (42.0-75.0) H 03/30/18 06:14 Lymph % (Auto) 3.5 % (21.0-51.0) L 03/30/18 06:14 [place] % (Auto) 6.0 % (0.0-13.0) 03/30/18 06:14 Eos % (Auto) 0.1 % (0.9-2.9) L 03/30/18 06:14 Baso % (Auto) 0.1 % (0.2-1.0) L 03/30/18 06:14 Neut # (Auto) 24.9 x10^3/uL (2.2-4.8) H 03/30/18 06:14 Lymph # (Auto) 1.0 X10^3/uL (1.3-2.9) L 03/30/18 06:14 [place] # (Auto) 1.7 x10^3/uL (0.3-0.8) H 03/30/18 06:14 Eos # (Auto) 0.0 x10^3/uL (0.0-0.2) 03/30/18 06:14 Baso # (Auto) 0.0 X10^3/uL (0.0-0.1) 03/30/18 06:14 Absolute Nucleated RBC 0.0 /100WBC 03/30/18 06:14 Total Counted 100 03/30/18 06:14 Neutrophils % (Manual) 93 % (39-76) H 03/30/18 06:14 Band Neutrophils % 2 % (0-10) 03/30/18 06:14 Lymphocytes % (Manual) 4 % (13-43) L 03/30/18 06:14 Monocytes % (Manual) 1 % (4-9) L 03/30/18 06:14 Eosinophils % (Manual) 2 % (0-6) 03/29/18 04:44 Plt Morphology Comment Normal (NORMAL) 03/30/18 06:14 RBC Morphology Normal (NORMAL) 03/30/18 06:14 Hypochromasia Slight A 03/29/18 04:44 Target Cells Present 03/29/18 04:44 Sample Site Rb 03/30/18 08:46 ABG pH 7.350 (7.35-7.45) 03/30/18 08:46 ABG pCO2 28.0 mmHg (35.0-45.0) L 03/30/18 08:46 ABG pO2 259.0 mmHg (80.0-100.0) H 03/30/18 08:46 ABG HCO3 15.5 mmol/L (22-26) L* 03/30/18 08:46 ABG O2 Saturation 100.0 % (90-100) 03/30/18 08:46 ABG Base Excess -8.7 mmol/L (-2.0-2.0) L 03/30/18 08:46 Jose Test N/a 03/30/18 08:46 A-a Gradient 134.0 mmHg 03/30/18 08:46 FiO2 60 03/30/18 08:46 Blood Gas Comments Pt melchor well. cdn 03/30/18 08:46 Sodium 141 mmol/L (136-145) 03/30/18 04:24 Corrected Sodium 146 mmol/L (136-145) H 03/30/18 04:24 Potassium 5.4 mmol/L (3.5-5.1) H 03/30/18 04:24 Chloride 108 mmol/L (98-107) H 03/30/18 04:24 Carbon Dioxide 19.3 mmol/L (21-32) L 03/30/18 04:24 BUN 82 mg/dL (7-18) H 03/30/18 04:24 Creatinine 3.38 mg/dL (0.55-1.02) H 03/30/18 04:24 Est GFR (MDRD) Af Amer 17 (>60) L 03/30/18 04:24 Est GFR (MDRD) Non-Af 14 (>60) L 03/30/18 04:24 Glucose 325 mg/dL (65-99) H 03/30/18 04:24 POC Glucose (mg/dL) 396 mg/dL (65-99) H 03/30/18 11:19 Lactic Acid 1.8 mmol/L (0.4-2.0) 03/28/18 16:12 Calcium 7.4 mg/dL (8.5-10.1) L 03/30/18 04:24 Corrected Calcium 9.3 mg/dL (8.5-10.1) 03/30/18 04:24 Total Bilirubin 0.70 mg/dL (0.2-1.0) 03/30/18 04:24 AST 108 Units/L (15-37) H 03/30/18 04:24 ALT 41 Units/L (12-78) 03/30/18 04:24 Alkaline Phosphatase 321 Units/L (46-116) H 03/30/18 04:24 Creatine Kinase 336 Units/L (26-192) H 03/30/18 12:50 CK-MB (CK-2) < 1.0 ng/mL (0-4.0) 03/30/18 12:50 CK/CKMB % Calc 0.3 % (<4) 03/30/18 12:50 Troponin I 0.06 ng/mL (0-1.5) 03/30/18 12:50 C-Reactive Protein 280.90 mg/L (0-3.0) H 03/30/18 04:24 Total Protein 6.3 g/dL (6.4-8.2) L 03/30/18 04:24 Albumin 1.6 g/dL (3.4-5.0) L 03/30/18 04:24 Globulin 4.7 g/dL (2.5-4.5) H 03/30/18 04:24 Albumin/Globulin Ratio 0.3 Ratio (1.1-2.1) L 03/30/18 04:24 Specimen Type Catherized urine 03/28/18 21:54 Urine Color Yellow (YELLOW) 03/28/18 21:54 Urine Appearance Cloudy (CLEAR) 03/28/18 21:54 Urine pH 5.0 (5.0 - 8.0) 03/28/18 21:54 Ur Specific [place] 1.015 (1.000-1.030) 03/28/18 21:54 Urine Protein 3+ (NEGATIVE) 03/28/18 21:54 Urine Glucose (UA) Negative (NEGATIVE) 03/28/18 21:54 Urine Ketones Negative (NEGATIVE) 03/28/18 21:54 Urine Occult Blood 3+ (NEGATIVE) 03/28/18 21:54 Urine Nitrite Negative (NEGATIVE) 03/28/18 21:54 Urine Bilirubin Negative (NEGATIVE) 03/28/18 21:54 Urine Urobilinogen Normal (NORMAL) 03/28/18 21:54 Ur Leukocyte Esterase 3+ (NEGATIVE) 03/28/18 21:54 Urine RBC 20-30 /HPF (NONE SEEN) 03/28/18 21:54 Urine WBC Tntc /HPF (NONE SEEN) 03/28/18 21:54 Ur Squamous Epith Cells Few /HPF (NEGATIVE) 03/28/18 21:54 Urine Bacteria 3+ /HPF (NEGATIVE) 03/28/18 21:54 Urine Yeast Many /HPF (NEGATIVE) 03/28/18 21:54 Ur Culture Indicated? Yes/culture set up 03/28/18 21:54 - Plan (1) Dehydration Status: Acute Plan: NORMAL SALINE AT 75ML/HR, CONTINUE TO MONITOR (2) Acute prerenal azotemia Status: Acute Plan: NORMAL SALINE AT 75ML/HR, CONTINUE TO MONITOR (3) Abscess Status: Acute Plan: INVANZ 1GM IV DAILY, WOUND CARE, CONTINUE TO MONITOR (4) Acute UTI (urinary tract infection) Status: Acute Plan: INVANZ 1GM IV DAILY (5) Hyperkalemia Status: Acute Plan: NORMAL SALINE AT 75ML/HR, CONTINUE TO MONITOR
[2018-03-30 16:38] LABS: CKMB % 0.4 % (<4); CREATINE KINASE MB 1.6 ng/mL (0-4.0); TROPONIN I 0.12 ng/mL (0-1.5)
--- NOTE | 2018-03-30 17:05 | PCM.PROG ---
Progress Note - Progress Note for Day of Date of Exam: 03/30/18 - Subjective Subjective: WAS ADMITTED FOR DEHYDRATION, PRERENAL AZOTEMIA, URINARY TRACT INFECTION, HYPERKALEMIA, AND MULTIPLE ABSCESSES. PATIENT BEGAN RUNNING A TEMPERATURE YESTERDAY. A TEMPERATERE OF 103.1 WAS NOTED AT 1700. BLOOD CULTURES WERE REPEATED AND TYLENOL WAS GIVEN. TEMPERATURE WAS NOTED TO DECREASE WITH TYLENOL. AT APPROXIMATELY 0600 THIS MORNING, STAFF REPORTS FINDING PATIENT UNRESPONSIVE, DROOLING. THEY REPORT THAT SHE WAS NOTED WITH CRACKLES AND WHEEZING TO AUSCULTATION. VITALS WERE NOTED TO BE B/P-88/41 ,T- 98.9,R-24 ,P-95 AND 0/2 99% ON RA AT THAT TIME. UPON RECHECK OF AM VITALS AT 0700, PATIENT WAS FOUND TO BE UNRESPONSIVE AND NOT BREATHING, CPR WAS STARTED AND PATIENT WAS TRANSPORTED TO THE INTENSIVE CARE UNIT. SHE WAS PLACED ON THE VENTILATOR WELL A LEVOPHED AND EPINEPHRINE DRIP. UPON MORNING ROUNDS, PATIENT CONTINUES TO BE UNRESPONSIVE AND ON THE VENTILATOR. POULTRY BREEDER REVEALS SINUS RHYTHM WITH HR IN THE 70S. BILATERAL LUNGS ARE NOTED WITH DIMINISHED LUNG SOUNDS THROUGHOUT. WOUND TO THE LEFT UPPER ABDOMEN AND RIGHT SHOULDER BOTH HAVE DRESSINGS AT THIS TIME. DRESSINGS ARE DRY AND INTACT. BILATERAL LOWER EXTREMITIES ARE NOTED WITH TRACE EDEMA. HER VITALS THIS MORNING ARE 98.2-77-26-100%VENT-57/32. LABS WERE OBTAINED. ABNORMAL LABS INCLUDE THE FOLLOWIN.6, RBC 2.88, HGB 7.1, HCT 22.4, POTASSIUM 5.4, CHLORIDE 108, CARBON DIOXIDE 19.3, BUN 82, CREATININE 3.38, GLUCOSE 325, CALCIUM 7.4, AST 108, ALK PHOS 321, CRP 280.90, TOTAL PROTEIN 6.3, ALBUMIN 1.6, CREATINE KINASE 299. ABG REVEALED: PH 7.270, P02 51.0, HC03 16.1, 02 SATURATION 80.0. CHEST XRAY REVEALED: Trachea is midline. There is accentuation of the transverse cardiac diameter and bronchovascular markings secondary to the expiratory phase. The heart size is likely upper normal. Lungs and pleural spaces are clear. No pneumothorax is seen. Osseous structures are intact. AN ECHOCARDIOGRAM WAS OBTAINED AND REVEALED AN EJECTION FRACTION OF 10- 15%. WE DISCUSSED DECLINE IN PATIENTS CONDITION WITH HER FAMILY. THEY WISH TO SIGN A DNR AND KEEP PATIENT COMFORTABLE AT THIS TIME. WE ARE IN AGREEMENT WITH PLAN. WE WILL DISCONTINUE THE LEVOPHED AND EPINEPHRINE DRIPS AND START VERSED AND MORPHINE DRIPS FOR PALLIATIVE CARE MEASURES. OTHERWISE, WE WILL FOLLOW UP AND CONTINUE TO MONITOR PATIENT. - Past Medical Family Social History Past Med/Fam/Surg Hx: No changes since H&P Allergies: Allergies Penicillins Allergy (Verified 02/27/17 17:17) - Review of Systems ROS: No change since H&P - Vital Signs and I&O's Vital Signs: Temperature 97.2 F Pulse Rate [Apical] 71 Pulse Rate 78 Respiratory Rate 15 Blood Pressure [Left Arm] 88/43 Blood Pressure [Right Arm] 159/80 Blood Pressure 108/69 O2 Sat by Pulse Oximetry 100 Intake and Output: Intake & Output 03/28/18 03/29/18 03/30/18 03/31/18 11:59 11:59 11:59 11:59 Intake Total 0 / 0 2420 / 2420 850 / 850 Output Total 900 / 900 1325 / 1325 150 / 150 Balance -900 / -900 1095 / 1095 700 / 700 - Physical Exam Oriented: Other (intubated and sedated) Eyes: Other (closed due to sedation) Ear: Normal Nose: Normal Throat: Normal Respiratory: Generalized, Diminished Cardiovascular: Normal : Normal Auscultation: Bowel Sounds: Normal Tenderness: Suprapubic, Mild. negative: Rebound, Guarding, Rigidity Skin: Normal Musculoskeletal: Right, Shoulder Psychiatric: Normal Mood Description: Calm Affect: Normal Speech Pattern: Artificially Ventilated - Laboratory and Diagnostics Result Diagrams: 03/30/18 06:14 03/30/18 04:24 Labs: 03/30/18 09:25 Sputum - Endotracheal Wash - Final 03/29/18 10:50 Shoulder - Right Gram Stain - Final 03/29/18 10:50 Shoulder - Right Wound Culture - Preliminary 03/29/18 10:50 Abdomen Gram Stain - Final 03/29/18 10:50 Abdomen Wound Culture - Preliminary 03/28/18 21:54 Urine,Catheterized Urine Culture - Preliminary 03/28/18 19:09 Blood Blood Culture - Preliminary 03/28/18 16:12 Blood Blood Culture - Preliminary Laboratory WBC 27.6 X10^3/uL (3.6-10.0) H 03/30/18 06:14 RBC 2.88 X10^6/uL (3.5-5.4) L 03/30/18 06:14 Hgb 7.1 g/dL (12.0-16.0) L 03/30/18 06:14 Hct 22.4 % (36.0-47.0) L 03/30/18 06:14 MCV 77.7 fL (80.0-100.0) L 03/30/18 06:14 MCH 24.7 pg (27.0-34.0) L 03/30/18 06:14 MCHC 31.8 g/dL (33.0-35.0) L 03/30/18 06:14 RDW 18.8 % (11.6-16.5) H 03/30/18 06:14 Plt Count 384 X10^3/uL (150.0-450.0) 03/30/18 06:14 Plt Count Comment Adequate (ADEQUATE) 03/30/18 06:14 MPV 9.9 fL (7.4-11.0) 03/30/18 06:14 Neut % (Auto) 90.3 % (42.0-75.0) H 03/30/18 06:14 Lymph % (Auto) 3.5 % (21.0-51.0) L 03/30/18 06:14 [place] % (Auto) 6.0 % (0.0-13.0) 03/30/18 06:14 Eos % (Auto) 0.1 % (0.9-2.9) L 03/30/18 06:14 Baso % (Auto) 0.1 % (0.2-1.0) L 03/30/18 06:14 Neut # (Auto) 24.9 x10^3/uL (2.2-4.8) H 03/30/18 06:14 Lymph # (Auto) 1.0 X10^3/uL (1.3-2.9) L 03/30/18 06:14 [place] # (Auto) 1.7 x10^3/uL (0.3-0.8) H 03/30/18 06:14 Eos # (Auto) 0.0 x10^3/uL (0.0-0.2) 03/30/18 06:14 Baso # (Auto) 0.0 X10^3/uL (0.0-0.1) 03/30/18 06:14 Absolute Nucleated RBC 0.0 /100WBC 03/30/18 06:14 Total Counted 100 03/30/18 06:14 Neutrophils % (Manual) 93 % (39-76) H 03/30/18 06:14 Band Neutrophils % 2 % (0-10) 03/30/18 06:14 Lymphocytes % (Manual) 4 % (13-43) L 03/30/18 06:14 Monocytes % (Manual) 1 % (4-9) L 03/30/18 06:14 Eosinophils % (Manual) 2 % (0-6) 03/29/18 04:44 Plt Morphology Comment Normal (NORMAL) 03/30/18 06:14 RBC Morphology Normal (NORMAL) 03/30/18 06:14 Hypochromasia Slight A 03/29/18 04:44 Target Cells Present 03/29/18 04:44 Sample Site Rb 03/30/18 08:46 ABG pH 7.350 (7.35-7.45) 03/30/18 08:46 ABG pCO2 28.0 mmHg (35.0-45.0) L 03/30/18 08:46 ABG pO2 259.0 mmHg (80.0-100.0) H 03/30/18 08:46 ABG HCO3 15.5 mmol/L (22-26) L* 03/30/18 08:46 ABG O2 Saturation 100.0 % (90-100) 03/30/18 08:46 ABG Base Excess -8.7 mmol/L (-2.0-2.0) L 03/30/18 08:46 Jose Test N/a 03/30/18 08:46 A-a Gradient 134.0 mmHg 03/30/18 08:46 FiO2 60 03/30/18 08:46 Blood Gas Comments Pt melchor well. cdn 03/30/18 08:46 Sodium 141 mmol/L (136-145) 03/30/18 04:24 Corrected Sodium 146 mmol/L (136-145) H 03/30/18 04:24 Potassium 5.4 mmol/L (3.5-5.1) H 03/30/18 04:24 Chloride 108 mmol/L (98-107) H 03/30/18 04:24 Carbon Dioxide 19.3 mmol/L (21-32) L 03/30/18 04:24 BUN 82 mg/dL (7-18) H 03/30/18 04:24 Creatinine 3.38 mg/dL (0.55-1.02) H 03/30/18 04:24 Est GFR (MDRD) Af Amer 17 (>60) L 03/30/18 04:24 Est GFR (MDRD) Non-Af 14 (>60) L 03/30/18 04:24 Glucose 325 mg/dL (65-99) H 03/30/18 04:24 POC Glucose (mg/dL) 388 mg/dL (65-99) H 03/30/18 16:17 Lactic Acid 1.8 mmol/L (0.4-2.0) 03/28/18 16:12 Calcium 7.4 mg/dL (8.5-10.1) L 03/30/18 04:24 Corrected Calcium 9.3 mg/dL (8.5-10.1) 03/30/18 04:24 Total Bilirubin 0.70 mg/dL (0.2-1.0) 03/30/18 04:24 AST 108 Units/L (15-37) H 03/30/18 04:24 ALT 41 Units/L (12-78) 03/30/18 04:24 Alkaline Phosphatase 321 Units/L (46-116) H 03/30/18 04:24 Creatine Kinase 398 Units/L (26-192) H 03/30/18 16:09 CK-MB (CK-2) 1.6 ng/mL (0-4.0) 03/30/18 16:09 CK/CKMB % Calc 0.4 % (<4) 03/30/18 16:09 Troponin I 0.12 ng/mL (0-1.5) 03/30/18 16:09 C-Reactive Protein 280.90 mg/L (0-3.0) H 03/30/18 04:24 Total Protein 6.3 g/dL (6.4-8.2) L 03/30/18 04:24 Albumin 1.6 g/dL (3.4-5.0) L 03/30/18 04:24 Globulin 4.7 g/dL (2.5-4.5) H 03/30/18 04:24 Albumin/Globulin Ratio 0.3 Ratio (1.1-2.1) L 03/30/18 04:24 Specimen Type Catherized urine 03/28/18 21:54 Urine Color Yellow (YELLOW) 03/28/18 21:54 Urine Appearance Cloudy (CLEAR) 03/28/18 21:54 Urine pH 5.0 (5.0 - 8.0) 03/28/18 21:54 Ur Specific [place] 1.015 (1.000-1.030) 03/28/18 21:54 Urine Protein 3+ (NEGATIVE) 03/28/18 21:54 Urine Glucose (UA) Negative (NEGATIVE) 03/28/18 21:54 Urine Ketones Negative (NEGATIVE) 03/28/18 21:54 Urine Occult Blood 3+ (NEGATIVE) 03/28/18 21:54 Urine Nitrite Negative (NEGATIVE) 03/28/18 21:54 Urine Bilirubin Negative (NEGATIVE) 03/28/18 21:54 Urine Urobilinogen Normal (NORMAL) 03/28/18 21:54 Ur Leukocyte Esterase 3+ (NEGATIVE) 03/28/18 21:54 Urine RBC 20-30 /HPF (NONE SEEN) 03/28/18 21:54 Urine WBC Tntc /HPF (NONE SEEN) 03/28/18 21:54 Ur Squamous Epith Cells Few /HPF (NEGATIVE) 03/28/18 21:54 Urine Bacteria 3+ /HPF (NEGATIVE) 03/28/18 21:54 Urine Yeast Many /HPF (NEGATIVE) 03/28/18 21:54 Ur Culture Indicated? Yes/culture set up 03/28/18 21:54 - Plan (1) Palliative care status Status: Acute Plan: MORPHINE AND VERSED DRIPS, CONTINUE TO MONITOR (2) Septic shock Status: Acute (3) Dehydration Status: Acute Plan: CONTINUE TO MONITOR (4) Acute prerenal azotemia Status: Acute Plan: CONTINUE TO MONITOR (5) Abscess Status: Acute Plan: CONTINUE TO MONITOR (6) Acute UTI (urinary tract infection) Status: Acute Plan: INVANZ 1GM IV DAILY (7) Hyperkalemia Status: Acute Plan: CONTINUE TO MONITOR
[2018-03-30] MEDS ORDERED: LACRI-LUBE S.O.P. AFFEYE SCH (21:00)
[2018-03-31 04:13] LABS: ABG BASE EXCESS -5.8 mmol/L (-2.0-2.0); ABG HCO3 21.1 mmol/L (22-26); FRACTIONATED INSPIRED OXYGEN 40
[2018-03-31 04:38] VITALS: BP 61/26
--- NOTE | 2018-05-12 01:55 | DR.DECEASE ---
Form - Labs Result Diagrams: 03/30/18 06:14 03/30/18 04:24 - Hospital Course Hospital Course: DAY ONE, IS A 72 YEAR OLD PATIENT OF DR.RHONDA REA. SHE PRESENTED TO THE ER WITH COMPLAINTS OF RIGHT SHOULER PAIN AND GENERALIZED WEAKNESS. HOME HEALTH NURSES REPORT THAT SHE HAS BEEN BEING TREATED FOR AN ABSCESS TO THE RIGHT SCAPULA AREA FOR SEVERAL WEEKS WELL E.COLI IN THE URINE. ON EXAMINATION, THERE WAS ALSO A WOUND TO THE LEFT UPPER ABDOMEN NOTED. PAST MEDICAL HISTORY INCLUDES CVA, COPD, DIABETES, HTN, ANEMIA, AND STENTS. ON ARRIVAL, VITALS WERE 97.6-76-22-95%-108/69. LABS WERE OBTAINED. ABNORMAL LAB VALUES INCLUDE THE FOLLOWING: WBC 28.3, RBC 3.06, HGB 7.5, HCT 24.0, POTASSIUM 5.8, CARBON DIOXIDE 19.8, BUN 86, CREATININE 3.79, GLUCOOSE 198, AST 56, ALK PHOS 262, CRP 319.70, TOTAL PROTEIN 8.4, ALBUMIN 2.0. URINALYSIS REVEALED WBC TNTC, RBC 20-30, BACTERIA 3+, LEUKOCYTES 3+, OCCULT BLOOD 3+, PROTEIN 3+. BLOOD AND URINE CULTURES ARE PENDING. A SHOULDER XRAY WAS OBTAINED AND REVEALED: There is narrowing of the acromiohumeral interval suggesting rotator cuff insufficiency. There appears to be enthesophyte extending from the greater tuberosity. This does not have the typical density of hydroxyapatite deposition. There is mild degenerative changes of the glenohumeral joint with severe degenerative changes of the AC joint. No fracture. A CHEST XRAY WAS OBTAINED AND REVEALED: No radiographic evidence of acute cardiopulmonary disease or significant change is noted when compared to the prior examination. EKG REVEALED: SINUS RHYTHM WITH HR 77. SHE WAS STARTED ON NORMAL SALINE AT 250ML/HR, LASIX 40MG IV X 1, KAYEXALATE 15GM PO X 1, SODIUM BICARB ONE AMP, D50 1 AMP, AND HUMULIN R 10 UNITS IN THE ER WELL A BREATHING TREATMENT. SHE WAS ADMITTED TO THE HOSPITAL FOR FURTHER EVALUATION AND TREATMENT OF DEHYDRATION, HYPERKALEMIA, AND PRE RENAL AZOTEMIA. WE STARTED IV HYDRATION AND IV ANTIBIOTICS. WE FOLLOWED UP WITH AM LABS AND CONTINUED TO MONITOR PATIENT. DAY TWO, SHE IS LYING IN BED ON MORNING ROUNDS. SHE HAD EYES CLOSED UPON ROUNDS, BUT AWAKENS TO VERBAL STIMULI. SHE CONTINUED WITH COMPLAINTS OF WEAKNESS, RIGHT SHOULDER PAIN, AND SUPRAPUBIC PAIN. ON EXAMINATION, HEART WAS REGULAR IN RATE AND RHYTHM. BILATERAL LUNGS WERE NOTED WITH DIMINISHED LUNG SOUNDS THROUGHOUT. ABDOMEN WAS ROUND, SOFT, AND NOTED WITH MILD, SUPRAPUBIC TENDERNESS TO PALPATION. WOUND TO THE LEFT UPPER ABDOMEN AND RIGHT SHOULDER BOTH HAD DRESSINGS AT THIS TIME. DRESSINGS WERE DRY AND INTACT. BILATERAL LOWER EXTREMITIES WERE NOTED WITH TRACE EDEMA. HER VITALS THIS MORNING WERE 99.6-80-20-94%RA-118/57. TEMP WAS NOTED TO BE 100.4 AT 4AM. LABS WERE OBTAINED. ABNORMAL LABS INCLUDED THE FOLLOWIN.0, RBC 3.00, HGB 7.5, HCT 23.5, POTASSIUM 5.2, CARBON DIOXIDE 20.6, BUN 89, CREATININE 3.79, GLUCOSE 270, CALCIUM 8.3, AST 51, ALK PHOS 239, ALBUMIN 1.9. SHE WAS RECEIVING NORMAL SALINE AT 250ML/HR. WE DECREASED IV FLUIDS TO 75ML/HR, OBTAIN WOUND CUTLURES, AND REPEAT BLOOD CULTURES. PREVIOUS URINE CULTURE WAS SENSITIVE TO INVANZ. WE STARTED INVANZ 1GM IV DAILY. WE FOLLOWED UP WITH AM LABS AND CONTINUED TO MONITOR PATIENT. DAY THREE, WAS ADMITTED FOR DEHYDRATION, PRERENAL AZOTEMIA, URINARY TRACT INFECTION, HYPERKALEMIA, AND MULTIPLE ABSCESSES. PATIENT BEGAN RUNNING A TEMPERATURE YESTERDAY. A TEMPERATERE OF 103.1 WAS NOTED AT 1700. BLOOD CULTURES WERE REPEATED AND TYLENOL WAS GIVEN. TEMPERATURE WAS NOTED TO DECREASE WITH TYLENOL. AT APPROXIMATELY 0600 THIS MORNING, STAFF REPORTED FINDING PATIENT UNRESPONSIVE, DROOLING. THEY REPORTED THAT SHE WAS NOTED WITH CRACKLES AND WHEEZING TO AUSCULTATION. VITALS WERE NOTED TO BE B/P-88/41 ,T- 98.9,R-24 ,P-95 AND 0/2 99% ON RA AT THAT TIME. UPON RECHECK OF AM VITALS AT 0700, PATIENT WAS FOUND TO BE UNRESPONSIVE AND NOT BREATHING, CPR WAS STARTED AND PATIENT WAS TRANSPORTED TO THE INTENSIVE CARE UNIT. SHE WAS PLACED ON THE VENTILATOR WELL A LEVOPHED AND EPINEPHRINE DRIP. UPON MORNING ROUNDS, PATIENT CONTINUED TO BE UNRESPONSIVE AND ON THE VENTILATOR. WET MACHINE CUTTER REVEALED SINUS RHYTHM WITH HR IN THE 70S. BILATERAL LUNGS WERE NOTED WITH DIMINISHED LUNG SOUNDS THROUGHOUT. WOUND TO THE LEFT UPPER ABDOMEN AND RIGHT SHOULDER BOTH HAD DRESSINGS AT THIS TIME. DRESSINGS WERE DRY AND INTACT. BILATERAL LOWER EXTREMITIES WERE NOTED WITH TRACE EDEMA. HER VITALS THIS MORNING WERE 98.2-77-26-100%VENT-57/32. LABS WERE OBTAINED. ABNORMAL LABS INCLUDED THE FOLLOWIN.6, RBC 2.88, HGB 7.1, HCT 22.4, POTASSIUM 5.4, CHLORIDE 108, CARBON DIOXIDE 19.3, BUN 82, CREATININE 3.38, GLUCOSE 325, CALCIUM 7.4, AST 108, ALK PHOS 321, CRP 280.90, TOTAL PROTEIN 6.3, ALBUMIN 1.6, CREATINE KINASE 299. ABG REVEALED: PH 7.270, P02 51.0, HC03 16.1, 02 SATURATION 80.0. CHEST XRAY REVEALED: Trachea is midline. There is accentuation of the transverse cardiac diameter and bronchovascular markings secondary to the expiratory phase. The heart size is likely upper normal. Lungs and pleural spaces are clear. No pneumothorax is seen. Osseous structures are intact. AN ECHOCARDIOGRAM WAS OBTAINED AND REVEALED AN EJECTION FRACTION OF 10-15%. WE DISCUSSED DECLINE IN PATIENTS CONDITION WITH HER FAMILY. THEY WISHED TO SIGN A DNR AND KEEP PATIENT COMFORTABLE AT THIS TIME. WE WERE IN AGREEMENT WITH PLAN. WE DISCONTINUED THE LEVOPHED AND EPINEPHRINE DRIPS AND STARTED VERSED AND MORPHINE DRIPS FOR PALLIATIVE CARE MEASURES. WE FOLLOWED UP AND CONTINUED TO MONITOR PATIENT. DAY FOUR. PATIENT PASSED PEACFULLY AT 0456 ON 03/31/18. - Expiration Expiration Date: 03/31/18 Expiration Time: 04:56 Pronounced by: DR. SINCERE DURANT Preliminary Cause of : SEE PHYSICIAN NOTE - Admission Diagnosis Patient Problems: Problems Shortness of breath (Acute) R06.02 Blindness (Chronic) H54.0 Rash (Acute) R21 Altered mental status (Acute) R41.82 Hypertension (Chronic) I10 Chronic renal failure, stage 4 (severe) (Chronic) N18.4 Cellulitis, trunk (Acute) L03.319 UTI (urinary tract infection) (Acute) N39.0 Cutaneous candidiasis (Acute) B37.2 Cellulitis (Acute) L03.90 Generalized weakness (Acute) R53.1 Acute on chronic renal failure (Acute) N17.9, N18.9 Rhabdomyolysis (Acute) M62.82 Diabetes mellitus (Chronic) E11.9 Hematoma and contusion (Acute) T14.8 Forehead laceration (Acute) S01.81XA Contusion of left ankle (Acute) S90.02XA Chest pain (Acute) R07.9 Urinary incontinence (Acute) R32 Acute UTI (urinary tract infection) (Acute) N39.0 Abscess (Acute) L02.91 Encounter for Blair catheter replacement (Acute) Z46.6 Dehydration (Acute) E86.0 Acute prerenal azotemia (Acute) R79.89 Chronic pain in right shoulder (Acute) M25.511, G89.29 Localized osteoarthritis of right shoulder (Acute) M19.011 Hyperkalemia (Acute) E87.5 Septic shock (Acute) A41.9, R65.21 Palliative care by specialist (Acute) Z51.5 Palliative care status (Acute) Z51.5 - Home Medications Home Medications: Home Medications Medication Instructions Recorded Type alprazolam 2 mg PO BID 03/28/18 History clopidogrel 75 mg PO QDAY 03/28/18 History hydralazine 50 mg PO TID 03/28/18 History hydrocodone-acetaminophen 1 tab PO TID 03/28/18 History insulin NPH isoph U-100 human 30 units SUBCUT BID 03/28/18 History [Humulin N NPH U-100 Insulin] losartan 100 mg PO DAILY 03/28/18 History pentoxifylline 400 mg PO BID 03/28/18 History pravastatin 40 mg PO HS 03/28/18 History
--- NOTE | 2018-05-25 13:30 | DR.TELECAR ---
TELECARDIOLOGY Consultation for Day of: Date: 03/30/18 Chief Complaint Chief Complaint: cardiac arrest Allergies Allergies Allergy/AdvReac Type Severity Reaction Status Date / Time Penicillins Allergy Verified 02/27/17 17:17 History of Present Illness History of Present Illness: Patient is currently intubation and sedated. Per family members, patient was admitted for shoulder pain and was found to be dehydrated. She arrested on the floor. Marlen yessica was called and she was sent to ICU along with being intubated and sedated. Past Medical History Past Medical History: COPD, Coronary Artery Disease (stent in the past), Diabetes and Hypertension Past Surgical History Surgical History: Angioplasty/Stents and Ortho Surgery Social History Does patient currently use any type of tobacco product: No (hx of tobacco use) Type of Tobacco Use: Cigarettes Does any household member use tobacco: No Alcohol Use: None Drug Use: None Medications Home Medications: Penicillins Allergy (Verified 02/27/17 17:17) CONTINUE taking the following medications alprazolam 2 mg PO BID 03/28/18 [History] clopidogrel 75 mg PO QDAY 03/28/18 [History] hydralazine 50 mg PO TID 03/28/18 [History] hydrocodone-acetaminophen 1 tab PO TID 03/28/18 [History] insulin NPH isoph U-100 human [Humulin N NPH U-100 Insulin] 30 units SUBCUT BID 03/28/18 [History] losartan 100 mg PO DAILY 03/28/18 [History] pentoxifylline 400 mg PO BID 03/28/18 [History] pravastatin 40 mg PO HS 03/28/18 [History] Review of Systems Constitutional: See HPI (not able to obtain due to intubated and sedated) Physical Exam Vital Signs: Temperature 97.3 F Pulse Rate [Apical] 79 Pulse Rate 78 Respiratory Rate 0 Blood Pressure [Left Arm] 89/44 Blood Pressure [Right Arm] 159/80 Blood Pressure 108/69 O2 Sat by Pulse Oximetry 100 Oriented: Other (intubated and sedated) Eyes: Other (closed due to sedation) Respiratory: negative Clear Throughout, Diminished Throughout, Rhonchi Throughout, Rales Throughout, Wheezes Throughout, RUL Clear, RML Clear, RLL Clear, [place] Clear, LML Clear, LLL Clear, RUL Diminished, RML Diminished, RLL Diminished, [place] Diminished, LML Diminished, LLL Diminished, RUL Absent, RML Absent, RLL Absent, [place] Absent, LML Absent, LLL Absent, RUL Rhonchi, RML Rhonchi, RLL Rhonchi, [place] Rhonchi, LML Rhonchi, LLL Rhonchi, RUL Insp. Wheeze, RML Insp. Wheeze, RLL Insp. Wheeze, [place] Insp.Wheeze, LML Insp.Wheeze, LLL Insp.Wheeze, RUL Exp. Wheeze, RML Exp. Wheeze, RLL Exp. Wheeze, [place] Exp. Wheeze, LML Exp. Wheeze, LLL Exp. Wheeze, RUL Rales, RML Rales, RLL Rales, [place] Rales, LML Rales, LLL Rales, RUL Rub, RML Rub, RLL Rub, [place] Rub, LML Rub, LLL Rub, RUL Squeak, RML Squeak, RLL Squeak, [place] Squeak, LML Squeak and LLL Squeak Cardiovascular: Normal Skin: Normal Medical Decision Making Reason for Consult: Cardiac Arrest EKG Results: Sinus Rhythm (hr 82- at time of admission, no ekg available to review after) Labs reviewed: Yes (CE neg) Plan Plan: 1. Cardiac arrest- will follow up with echo 2. CAD- f/u with CE 3. HTN 4. DM
== END 2018-03-31 09:40 | disposition expired | DRG 689 ==
LOC: ER 14:46 → MED/SURG 21:12 → ICU 03-30 07:28
PROVIDERS: ADMIT Internal Medicine; ATTEND Internal Medicine
DX: R79.82 Elevated C-reactive protein (CRP); J44.9 Chronic obstructive pulmonary disease, unspecified; E86.0 Dehydration; E11.65 Type 2 diabetes mellitus with hyperglycemia; E87.5 Hyperkalemia; I46.9 Cardiac arrest, cause unspecified; E66.01 Morbid (severe) obesity due to excess calories; B96.29 Other Escherichia coli [E. coli] as the cause of diseases classified elsewhere; I87.2 Venous insufficiency (chronic) (peripheral); N39.0 Urinary tract infection, site not specified; B96.89 Other specified bacterial agents as the cause of diseases classified elsewhere; Z51.5 Encounter for palliative care; N17.8 Other acute kidney failure; B95.62 Methicillin resistant Staphylococcus aureus infection as the cause of diseases classified elsewhere; M25.511 Pain in right shoulder; R65.21 Severe sepsis with septic shock
CPT/HCPCS: 31500; 36415; 36556; 36600; 71010; 71045; 73030; 80053; 81001; 82550; 82553; 82803; 83605; 84484; 85025; 86140; 87040; 87070; 87075; 87077; 87086; 87088; 87186; 87205; 93005; 93010; 93306; 94002; 94003; 94060; 94640; 94664; 94727; 94729; 94760; 96365; 96367; 96374; 96375; 99283; 99284; A4216; A4222; A4618; G0237; G0238; J0131; J0171; J0610; J1335; J1815; J1940; J2271; J3370; J3490; J7030; J7050; J7060; J7613